=== PATIENT | female | born 1960 ===

== ENCOUNTER 2018-09-27 09:45 | Inpatient (IN) | payer OTHER ==
[~2018-09-27] VITALS: Ht 165.1 cm; Wt 74.8 kg
[2018-09-27] MEDS ORDERED: SYNTH PO (12:53)
[2018-09-27] MEDS ORDERED: PANTO PO (12:54)
[2018-09-27] MEDS ORDERED: CARAFATE1 GM PO (12:54)
[2018-09-27] MEDS ORDERED: [UNRECOGNIZED DRUG - OTHER] PO (12:55)
[2018-09-27] MEDS ORDERED: ZANTAC300 MG PO (12:55)
[2018-09-27] MEDS ORDERED: MULTIVITAMINS1 EAC9 PO (12:56)
[2018-09-27] MEDS ORDERED: IRON PO (12:56)
[2018-09-27] MEDS ORDERED: PROTONIX40 MG PO (15:39)
[2018-09-30] MEDS ORDERED: LEVOXYL50 MCG PO (09:47)
[2018-09-30] MEDS ORDERED: IRON236 MG PO (09:48)
[2018-09-30] MEDS ORDERED: TOPROL XL25 MG PO (09:49)
[2018-09-30] MEDS ORDERED: GAS RELIEF125 MG PO (11:56)
[2018-09-30] MEDS ORDERED: CARAFATE1 GM PO (11:56)
[2018-09-30] MEDS ORDERED: TRAM1TAB98 PO (11:57)
[2018-09-30] MEDS ORDERED: POLY119PG PO (11:57)
[2018-09-30] MEDS ORDERED: SURFAK240 M1 PO (11:58)
== END 2018-10-01 13:58 | disposition home or self-care (01) | DRG 327 ==
LOC: SURH 09:45 → O/R 09-29 05:38 → SURH 09-29 05:38
PROVIDERS: ADMIT Surgery
PROC: 0DS64ZZ Reposition Stomach, Percutaneous Endoscopic Approach (ICD-10-PCS; 2018-09-29)
PROC: 0DV44ZZ Restriction of Esophagogastric Junction, Percutaneous Endoscopic Approach (ICD-10-PCS; 2018-09-29)
PROC: 0WUF4JZ Supplement Abdominal Wall with Synthetic Substitute, Percutaneous Endoscopic Approach (ICD-10-PCS; 2018-09-29)
PROC: 0DJ08ZZ Inspection of Upper Intestinal Tract, Via Natural or Artificial Opening Endoscopic (ICD-10-PCS; 2018-09-29)
PROC: 0BUT4JZ Supplement Diaphragm with Synthetic Substitute, Percutaneous Endoscopic Approach (ICD-10-PCS; principal; 2018-09-29 07:00)
DX: K44.9 Diaphragmatic hernia without obstruction or gangrene (principal); J98.11 Atelectasis; K31.89 Other diseases of stomach and duodenum; R13.19 Other dysphagia; K42.9 Umbilical hernia without obstruction or gangrene; I10 Essential (primary) hypertension; E03.8 Other specified hypothyroidism